=== PATIENT | female | born 1945 | race Two or more races ===

== ENCOUNTER → 2017-07-04 | Emergency (ER) | payer OTHER ==
[~2017-07-04] VITALS: Ht 154.9 cm; Wt 50.8 kg
[~2017-07-04] MED LIST: ACIDOPHILUS1 EAC1 PO; AMOX1TAB12 PO; EVISTA60 MG; GLUCOPHAGE XR500 MG PO; ZOCOR40 MG PO
== END | disposition home or self-care (01) ==
LOC: ER 09:34
DX: L03.115 Cellulitis of right lower limb (principal)

== ENCOUNTER 2025-05-11 09:46 | Emergency (ER) | payer OTHER ==
[~2025-05-11] VITALS: Ht 160 cm; Wt 65.8 kg
[2025-05-11 10:59] VITALS: BP 171/82; O2SAT 98
[2025-05-11] MEDS ORDERED: MECLIZINE HCL 25 MG TABLET PO ONE ×2 (11:30→11:34)
[2025-05-11 12:16] LABS: BASO % 0.4 % (0.1-1.2); EOS # 0.01 (0.04-0.54); EOS % 0.1 % (0.7-7.0); LYMPH # 1.59 (1.18-3.74); LYMPH % 14.6 % (19.3-53.1); MEAN PLATELET VOLUME 10.10 fl (9.4-12.4); MONO # 0.39 (0.24-0.82); MONO % 3.6 % (4.7-12.5); NEUT # 8.77 (1.56-6.13); NEUT % 80.7 % (34.0-71.1); RED CELL DISTRIBUTION WIDTH 13.2 % (11.6-14.4)
[2025-05-11 12:30] LABS: INR 1.04
[2025-05-11 12:42] LABS: BUN CREA RATIO 26.0 (7.0-25.0); CREATININE SERUM 0.42 mg/dL (0.55-1.02); GFR 145.92; GLUCOSE FASTING 110.0 mg/dL (65-100); OSMOLALITY SERUM 279.0 MOSM/KG (275-295)
[2025-05-11 13:33] LABS: URINE APPEARANCE Clear; URINE BILIRRUBIN Negative (NEGATIVE); URINE BLOOD Negative; URINE COLOR Yellow; URINE GLUCOSE Negative (NEGATIVE); URINE KETONE Negative (NEGATIVE); URINE LEUKOCYTE Negative; URINE NITRATE Negative; URINE PROTEIN Negative (NEGATIVE); URINE UROBILINOGEN 1.0 E.U./dl
[2025-05-11 13:37] LABS: URINE BACTERIA 11.9 uL (0.0-1933); URINE EPITHELIAL CELLS 13.3 uL (0.0-38.8); URINE RBC 6.7 uL (0.0-20.8); URINE WBC 13.3 uL (0.0-23.2)
[2025-05-11 13:38] LABS: URINE CAST 0.43 uL (0.0-1.40)
== END 2025-05-11 19:40 | disposition home or self-care (01) ==
LOC: ER 09:46
PROVIDERS: General Practice
DX: R55 Syncope and collapse (principal); E11.9 Type 2 diabetes mellitus without complications; Z79.84 Long term (current) use of oral hypoglycemic drugs